=== PATIENT | male | born 1990 | race Caucasian/White ===

== ENCOUNTER 2023-06-21 14:30 | Emergency (ER) | payer SELFPAY ==
[2023-06-21] MEDS ORDERED: Sodium Chloride 0.9% 10 ML Syringe FLUSH PRN (14:53)
[2023-06-21 15:16] LABS: BASOPHILS ABSOLUTE AUTO 0.02 10^3/uL (0.00-0.50); BASOPHILS PERCENT AUTO 0.2 % (0-1); HEMATOCRIT 46.5 % (42.0-52.0); HEMOGLOBIN 15.3 g/dL (14.0-18.0); IMMATURE GRAN ABSOLUTE AUTO 0.01 10^3/uL (0.00-0.49); IMMATURE GRAN PERCENT AUTO 0.1 % (0.0-4.9); LYMPHOCYTES ABSOLUTE AUTO 1.62 10^3/uL (0.60-5.00); LYMPHOCYTES PERCENT AUTO 12.3 % (24-44); MEAN CORPUSCULAR HEMOGLOBIN 29.3 pg (27.0-32.0); MEAN CORPUSCULAR HGB CONC 32.9 g/dL (32.0-36.0); MEAN CORPUSCULAR VOLUME 88.9 fL (83.0-97.0); MONOCYTES ABSOLUTE AUTO 1.35 10^3/uL (0.00-1.50); MONOCYTES PERCENT AUTO 10.3 % (0-10); NEUTROPHILS ABSOLUTE AUTO 10.14 x10^3/uL (1.80-8.00); NEUTROPHILS PERCENT AUTO 77.1 % (41-71); PLATELET COUNT,PLT 258 10^3/uL (150-400); RED BLOOD CELL COUNT 5.23 x10^6/uL (4.50-6.00); WHITE BLOOD CELL COUNT,WBC 13.1 10^3/uL (4.0-11.0)
[2023-06-21 15:28] LABS: ALBUMIN 4.5 g/dL (3.4-5.0); BILIRUBIN TOTAL 0.4 mg/dL (0.0-1.0); CALCIUM 9.1 mg/dL (8.4-10.1); CREATININE 1.5 mg/dL (0.7-1.3); EST CRCL DRUG DOSING (CG) 75.3 mL/min; POTASSIUM,K 3.3 mEq/L (3.5-5.0); PROTEIN TOTAL,TP 8.4 g/dL (6.4-8.2)
[2023-06-21] MEDS: Sodium Chloride 0.9% 1,000 ML IV ONE (15:33)
[2023-06-21 16:47] LABS: MDMA (ECSTASY), URINE NEGATIVE (NEGATIVE)
[2023-06-21 16:48] LABS: METHAMPHETAMINES,URINE POSITIVE (NEGATIVE)
[2023-06-21 16:49] LABS: AMPHETAMINES,URINE NEGATIVE (NEGATIVE); BARBITURATES,URINE NEGATIVE (NEGATIVE); BENZODIAZEPINE,URINE NEGATIVE (NEGATIVE); METHADONE,URINE POSITIVE (NEGATIVE); OPIATES,URINE NEGATIVE (NEGATIVE); OXYCODONE,URINE NEGATIVE (NEGATIVE); PHENCYCLIDINE,URINE NEGATIVE (NEGATIVE); TCA,URINE NEGATIVE (NEGATIVE)
== END 2023-06-21 17:26 | disposition home or self-care (01) ==
LOC: CC.ED 14:30
DX: T43.212A Poisoning by selective serotonin and norepinephrine reuptake inhibitors, intentional self-harm, initial encounter (principal); F17.210 Nicotine dependence, cigarettes, uncomplicated
CPT/HCPCS: 36415; 80053; 80143; 80179; 80305-QW; 85025; 93005; 99285; J7030